=== PATIENT | female | born 1965 | race Caucasian/White ===

== ENCOUNTER 2017-02-05 06:54 | Outpatient (CLI) | payer BC | END 2017-02-05 06:55 | disposition home or self-care (01) | LOC: BICMAMMO 06:54 | PROVIDERS: ATTEND Family Medicine | DX: Z12.31 Encounter for screening mammogram for malignant neoplasm of breast (principal); Z80.3 Family history of malignant neoplasm of breast | CPT/HCPCS: 77063; 77067; G0202 ==

== ENCOUNTER 2017-07-07 10:07 | Outpatient (CLI) | payer BC ==
[~2017-07-07 10:07] MED LIST: Iopamidol 370 76% 100 ML VIAL ONE
--- NOTE | 2017-07-07 13:39 | CT ---
CT ABDOMEN AND PELVIS WITH IV CONTRAST: Technique: Multiple axial tomograms were obtained through the abdomen and pelvis with IV enhancement. Oral contrast was also administered. Indications: Abdominal pain. Right lower abdominal pain. FINDINGS: Lung bases clear. Images of the liver reveal a nonspecific low density lesion in the superior right lobe adjacent to th e diaphragm measuring approximately 1.0 cm. This is not cystic by density criteria and is an indeterm inate lesion. The liver is otherwise unremarkable. Spleen and pancreas unremarkable. Stomach and duod enum unremarkable. The adrenal glands and kidneys are unremarkable. There are tiny low density foci in the renal cortex bilaterally, subcentimeter and too small to adequately characterize, most likely representing tiny co rtical cysts. No hydronephrosis or urinary tract calculus identified. Small bowel loops normal caliber. Appendix is identified and appears normal. Colon is unremarkable. U terus and adnexa are unremarkable. Urinary bladder unremarkable. Aorta normal caliber. No adenopathy apparent. IMPRESSION: 1. Indeterminate low density lesion in the superior right lobe of the liver adjacent to the diaphragm measuring 1.0 cm. Suggest hepatic ultrasound in an attempt to identify and further characterize this lesion. 2. CT abdomen and pelvis otherwise unremarkable with no acute process identified. POS: [facility]
== END 2017-07-07 10:08 | disposition home or self-care (01) ==
LOC: SCSCT 10:07
PROVIDERS: ATTEND Internal Medicine Gastroenterology
DX: R19.7 Diarrhea, unspecified (principal); R15.9 Full incontinence of feces; R14.3 Flatulence; R10.31 Right lower quadrant pain; K76.89 Other specified diseases of liver; Z87.19 Personal history of other diseases of the digestive system
CPT/HCPCS: 74177

== ENCOUNTER 2017-07-14 14:00 | Outpatient (CLI) | payer BC ==
[~2017-07-14 14:00] MED LIST changes: +Gadobenate Dimeglumine 529 MG/1 ML (20ML VIAL) ONE; -Iopamidol 370 76% 100 ML VIAL ONE
--- NOTE | 2017-07-14 16:12 | MRI ---
MRI ABDOMEN WITH AND WITHOUT IV CONTRAST: Date: 07/14/17 HISTORY: Abdominal pain. Liver lesion in right lobe on CT scan of 07/07/17. FINDINGS: Correlation is made with CT scan of 07/07/17. There is a 1.0 cm lesion in the dome of the right lobe of the liver which demonstrates low T1 and hig h T2 signal, and filling on delayed postcontrast images, consistent with a small hemangioma. The sple en, pancreas, and adrenal glands are normal. Tiny cysts are seen in the kidneys on either side. Gallb ladder is normal. No free fluid or lymphadenopathy is seen. There is no evidence of aneurysmal dilata tion of the abdominal aorta. Bone marrow signal is normal. IMPRESSION: 1. Small liver hemangioma. 2. Tiny renal cysts. POS: [facility]
== END 2017-07-14 14:01 | disposition home or self-care (01) ==
LOC: SCSMRI 14:00
PROVIDERS: ATTEND Internal Medicine Gastroenterology
DX: K76.9 Liver disease, unspecified (principal); D18.03 Hemangioma of intra-abdominal structures; Q61.02 Congenital multiple renal cysts
CPT/HCPCS: 74183; A9579

== ENCOUNTER 2018-02-04 13:00 | Outpatient (CLI) | payer BC ==
--- NOTE | 2018-02-04 17:15 | MRI ---
MRI PELVIS WITH AND WITHOUT CONTRAST: HISTORY: Anal fistula. COMPARISON: CT of 07/07/2017. FINDINGS: There appears to be a small right-sided perianal intersphincteric fistula on the right, at 10 o'clock , extending through the internal sphincter and between the internal and external sphincters before ex iting the gluteal cleft on the right. There is no significant surrounding inflammation. There appea rs to be some scarring around this focus, likely chronic in nature. Incidental note is made of a small Bartholin's gland cyst on the right, measuring up to a centimeter in size with some peripheral low T2 signal, suggesting hemosiderin from prior hemorrhage. The bones are unremarkable. Intrapelvic soft tissues are unremarkable. The muscles are unremarkable. IMPRESSION: 1. 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 2. Incidental note of a Bartholin gland cyst on the right, measuring up to 9 mm, with a peripheral h emosiderin ring from prior hemorrhage, at the posterolateral right vaginal introitus. POS: [facility]
== END 2018-02-04 13:01 | disposition home or self-care (01) ==
LOC: SCSMRI 13:00
PROVIDERS: ATTEND Colon & Rectal Surgery
DX: K60.3 Anal fistula (principal); K62.89 Other specified diseases of anus and rectum
CPT/HCPCS: 72197

== ENCOUNTER 2019-03-17 09:27 | Outpatient (CLI) | payer BC ==
--- NOTE | 2019-03-17 12:55 | CT ---
CT OF THE ABDOMEN AND PELVIS WITH CONTRAST: Date: 03/17/2019 COMPARISON: None. HISTORY: Right lower quadrant abdominal pain. TECHNIQUE: Multiple contiguous axial images were obtained in a CT of the abdomen and pelvis with contrast. PO co ntrast was administered. Sagittal and coronal reformats were performed. FINDINGS: A subcentimeter hypodensity in the right kidney is too small to definitely characterize, but likely r epresents a cyst. The liver, gallbladder, left kidney, adrenal glands, spleen, and pancreas are unrem arkable. No free air, free fluid, or stranding changes are seen in the abdomen or pelvis. The reproductive org ans are unremarkable. The large and small bowel are unremarkable. The appendix is normal. No abdomina l or pelvic lymphadenopathy seen. Mild degenerative changes are seen in the spine. Visualized inferior thorax and abdominal wall soft t issues are unremarkable. IMPRESSION: No evidence of acute intra-abdominal/pelvic abnormality. POS: [facility]
== END 2019-03-17 09:28 | disposition home or self-care (01) ==
LOC: SCSCT 09:27
PROVIDERS: ATTEND Physician Assistant Medical
DX: R10.31 Right lower quadrant pain (principal); R15.9 Full incontinence of feces; Z87.19 Personal history of other diseases of the digestive system
CPT/HCPCS: 74177

== ENCOUNTER 2022-08-14 11:29 | Outpatient (CLI) | payer BC | END 2022-08-14 11:30 | disposition home or self-care (01) | LOC: SCSRAD 11:29 | PROVIDERS: ATTEND Family Medicine | DX: M25.522 Pain in left elbow (principal) ==

== ENCOUNTER 2023-07-27 16:58 | Outpatient (CLI) | payer BC | END 2023-07-27 16:59 | disposition home or self-care (01) | LOC: SCSRAD 16:58 | PROVIDERS: ATTEND Physician Assistant | DX: S29.9XXA Unspecified injury of thorax, initial encounter (principal) ==